=== PATIENT | female | born 1940 | race Caucasian/White ===

== ENCOUNTER 2021-01-26 23:21 | Emergency (ER) | payer MEDICARE, OTHER, SELFPAY ==
--- NOTE | ~2021-01-26 | CT_ITS ---
EXAMINATION: CT BRAIN WITHOUT CONTRAST AND CHEST X-RAY. CLINICAL INFORMATION: Acute agitation. Rule out stroke or bleed. Weakness. COMPARISON: None TECHNIQUE: 5 mm thin axial and reformatted 2 minutes in sagittal and coronal images of brain were obtained. DLP 620. Chest x-ray one view. FINDINGS: CHEST: The lungs are well-expanded with prominent bilateral hilar markings but no congestion or infiltrates seen. There is no pleural effusion. The heart size is borderline enlarged. There is mild spondylosis dorsal spine. BRAIN: There is no acute intra-axial, extra-axial bleed, masses or midline shift. Both lateral ventricles are symmetrical in size and configuration with mild enlargement. There is diffuse periventricular hypodensity in both cerebral hemispheres without mass effect. Bone windows reveal benign hyperostosis frontalis interna. No calvarial fracture. There is no scalp soft tissue abnormality. Bilateral paranasal sinuses and mastoid air cells are well aerated. CT/CT head/brain wo con IMPRESSION: Unremarkable chest x-ray. No acute intracranial process seen. Age-related mild cerebral volume loss with small vessel microangiopathy in both cerebral hemispheres.
[2021-01-26 23:41] VITALS: BP 152/58; PULSE 94; RESP 16; TEMP 36.7; O2SAT 98; BMI 28.1
[2021-01-27] VITALS (7 sets, daily range): BP systolic 128–180; BP diastolic 51–84; PULSE 84–90; RESP 16–18; TEMP 36.5–36.6; O2SAT 96–99
--- NOTE | 2021-01-27 02:54 | PC.NURSE ---
PT REMAINS CALM AND COOPERATIVE IN ED. PT CONVERSING WITH STAFF AND HOLDING ON TO TEODORO ACOSTA. PT DRINKING HASEEB BRIAN AND EATING CRACKERS. PT IS AWAITING FOR 'S ADIS. WILL CONTINUE TO MONITOR PT.
--- NOTE | 2021-01-27 05:53 | PC.NURSE ---
PT SLEEPING AND IN NAD AT THIS TIME. PT AWAITING FOR MD'S EVAL.
--- NOTE | 2021-01-27 06:06 | ECG_ITS ---
Test Reason : ANXIETY Blood Pressure : / mmHG Vent. Rate : 083 BPM Atrial Rate : 083 BPM P-R Int : 180 ms QRS Dur : 144 ms QT Int : 396 ms P-R-T Axes : 057 -51 001 degrees QTc Int : 465 ms Normal sinus rhythm Left axis deviation Right bundle branch block Abnormal ECG No previous ECGs available Referred By: Hebrert Montelongo Electronically Signed By:Benedict Kirby
[2021-01-27 07:01] LABS: MANUAL DIFF FLAG NO
[2021-01-27 07:03] LABS: Basophils Absolute Auto 0.1 X10*3/uL (0.0-0.2); Basophils Percent Auto 0.6 % (0-2); Eosinophils Absolute Auto 0.1 X10*3/uL (0.0-0.4); Eosinophils Percent Auto 1.8 % (0-4); Hematocrit 30.9 % (37-47); Hemoglobin 9.7 g/dl (12.0-16.0); Imm Gran Abs Auto 0.03 X10*3/uL (0.00-0.03); Imm Gran Pct Auto 0.4 % (0.0-0.4); Lymphocytes Absolute Auto 2.3 X10*3/uL (1.2-4.9); Lymphocytes Percent Auto 29.2 % (20-40); Mean Corpuscular HGB Conc 31.4 g/dl (31.0-35.0); Mean Corpuscular Hemoglobin 28.3 pg (27.0-33.0); Mean Corpuscular Volume 90.1 fL (80-98); Mean Platelet Volume 10.8 fL (9.4-12.3); Monocytes Absolute Auto 0.8 X10*3/uL (0.1-1.2); Neutrophils Absolute Auto 4.5 X10*3/uL (2.0-8.3); Platelet Count 187 X10*3/uL (160-400); Red Blood Count 3.43 X10*6/uL (4.20-5.50); White Blood Count 7.7 X10*3/uL (4.8-10.8)
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
--- NOTE | 2021-01-27 07:14 | PC.NURSE ---
spoke with bree from [facility] will fax over paperwork
--- NOTE | 2021-01-27 07:15 | PC.NURSE ---
Patient is resting quietly with eyes closed in no acute distress
[2021-01-27 07:17] LABS: COVID-19 Test Negative (Negative)
[2021-01-27 07:40] LABS: Lipase 31 U/L (8-78)
[2021-01-27 07:41] LABS: Ethanol < 10 mg/dL
[2021-01-27 07:42] LABS: Lactic Acid 0.7 mmol/L (0.5-2.0)
[2021-01-27 07:49] LABS: Alanine Aminotransferase 19 U/L (0-31); Albumin Level 3.1 g/dL (3.5-5.0); Alkaline Phosphatase 31 U/L (39-117); Anion Gap 10 (12-20); Aspartate Amino Transferase 24 U/L (5-31); Bilirubin Total 0.5 mg/dL (0.0-1.0); Blood Urea Nitrogen 11 mg/dL (9-16); Calcium 9.5 mg/dL (8.4-10.2); Carbon Dioxide 28 mmol/L (22-29); Chloride 107 mmol/L (96-108); Creatinine Clr Calc Pharmacy 64.5; Estimated Glomerular Filt Rate > 60; Glucose Random 89 mg/dL (60-115); Potassium 3.7 mmol/L (3.3-5.1); Sodium 141 mmol/L (135-145); Total Protein 5.3 g/dL (6.5-8.0)
[2021-01-27 07:51] LABS: Troponin-I High Sensitivity 22.3 ng/L (<3.5-17.0)
[2021-01-27 08:02] LABS: TSH reflex Free T4 0.65 uIU/mL (0.32-4.0)
--- NOTE | 2021-01-27 08:55 | PC.NURSE ---
Patient is asleep in bed in no distress. Respirations are even and nonlabored
[2021-01-27 09:51] LABS: COVID-19 Test Negative (Negative); Troponin-I High Sensitivity 21.6 ng/L (<3.5-17.0)
--- NOTE | 2021-01-27 11:23 | PC.NURSE ---
Patient resting quietly in bed in no distress. Pt has been sleeping most of the morning. Pt wakes up for vital signs. respirations are even and nonlabored
--- NOTE | 2021-01-27 11:30 | PC.NURSE ---
Patient awake and up to bedside commode then back to beds. pt is calm and cooperative. Pt denies any pain.
[2021-01-27 12:06] LABS: Glucose Urine UA NEG (NEG); Leukocyte Esterase Urine 1+ (NEG); Nitrite Urine NEG (NEG); Specific Gravity - Urine 1.015 (1.005-1.025); UACC Culture Trigger YES; Urine Blood NEG (NEG); Urine Ketones NEG (NEG); Urine Protein NEG (NEG-TRACE)
[2021-01-27 12:08] LABS: Appearance Urine HAZY; Color Urine YELLOW
[2021-01-27 12:24] LABS: Bacteria Urine TRACE /LPF; RBC Urine 0 /HPF (0); Squamous Epithelial Cell Urine 1+ /LPF
--- NOTE | 2021-01-27 13:30 | PC.NURSE ---
Patient sitting up in bed eating lunch in no distress
--- NOTE | 2021-01-27 13:31 | MHC.CM.ED ---
Received case management consult from CHANTELLE Bertrand. Patient was discharged from [facility] inpatient psych to [facility]. [facility] did not have patient's medication. She has a psych history and advanced dementia. Was brought to the ER under Section 12. Received telephone call from Robby at [facility]. If [facility] is unable to accept patient, they would be willing to accept patient back so she doesn't have to stay in the ER. Spoke with Amanda at [facility]. Ancticipate patient will be able to return Sunday, 01/28 with a morning transport. However, there are no managers in the building to confirm this. Spoke with patient's son, Raymond. He would prefer patient return to [facility]. Continue to monitor for d/c needs.
--- NOTE | 2021-01-27 14:16 | PC.NURSE ---
Patient remains calm and cooperative with staff. Pt is currently resting in bed with noted distress
--- NOTE | 2021-01-27 14:40 | PHA.MEDREC ---
Pharmacy Consult ? Medication Reconciliation Pharmacy has completed the medication reconciliation. Based on recent fill history patient should be on Amlodipine 5mg daily and Ferrous gluconate 324mg MoWeFr, however [facility] did not continue or have record of these medications so patient has not been taking them. Paroxetine 40mg daily was DC'd at [facility]. Melba Qureshi, PharmD
--- NOTE | 2021-01-27 16:00 | PC.NURSE ---
Pt is confused due to dementia and starting to show signs of sundown syndrome. Pt assisted to bedside commode then back to bed. Pt currently redirected with the tv and stuffed animal.
--- NOTE | 2021-01-27 16:56 | PC.NURSE ---
Patient is currently sitting in bed looking around in no distress.
--- NOTE | 2021-01-27 18:15 | PC.NURSE ---
patient given a dinner tray.
--- NOTE | 2021-01-27 18:54 | PC.NURSE ---
Patient trying to get out of the foot of the bed. Pt encouraged to slide back up in the bed. Pt offered a chance to go to the bathroom but declines.
--- NOTE | 2021-01-27 23:09 | PC.NURSE ---
several attempts to have pt change into hospital clothing and take 9pm antibiotic were unsuccessful. pt will not stay seated in recliner or bed, pacing. several attempts to redirect patient to stay seated or in bed. pt's med rec done, but still needs to be signed off by provider. pt has not had her medications in 2 days.
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
--- NOTE | 2021-01-28 04:16 | PC.NURSE ---
PT HAS WET PANTS FROM URINARY INCONTINENCE. ASKED PT TO CHANGE SO WE CAN WASH HER CLOTHING. [address] [employer] AND SEVERAL OTHER RN'S HAVE SPEND A LONG TIME ENCOURAGING PT TO CHANGE. RN BRIM [employer]ASER OPERATOR CONTACTED AND AWARE OF THE SITUATION. HER ADVICE WAS TO KEEP ENCOURAGING AND TRY IN THE MORNING.
--- NOTE | 2021-01-28 04:20 | PC.NURSE ---
PT AMBULATORY WITH STEADY GAIT, UP WALKING EVERY 30 MINUTES. PT THINKS SHE IS IN A RETAIL STORE. PT WILL NOT GO TO BATHROOM.
[2021-01-28 05:01] VITALS: RESP 16
--- NOTE | 2021-01-28 05:19 | PC.NURSE ---
PATIENT REFUSED TO HAVE VITALS TAKEN ,RN AWARE .
[2021-01-28] MEDS: Folic Acid 1 MG TABLET PO (07:43)
[2021-01-28] MEDS: Aspirin 81 MG TAB.CHEW PO (07:43)
--- NOTE | 2021-01-28 07:55 | PC.NURSE ---
pt sitting up in chair, she has put her breakfast on the floor and into the bed but did consume a small amount. Pt was able to take antibiotic this AM but then refused to take any other meds and put them on the floor. She has been yelling at staff about picking up the meds, seems angry. Pt has wet pants and is refusing to be changed. she has been up walking around the room looking for a telephone. Pt is very difficult to redirect at this time.
--- NOTE | 2021-01-28 09:38 | PC.NURSE ---
pt has been awake, agitated, refusing food, meds and care. She is ambulatory in hallway and asking staff to call her , then refusing to return to room. Pt redirected by multiple staff and now sitting in chair.
[2021-01-28] MEDS: LORazepam 2 MG/ML VIAL IM (09:58)
--- NOTE | 2021-01-28 10:11 | PC.NURSE ---
pt has become increasingly agitated and combative. She has walked from room into nursing station area, pushed bedside table into staff. She has been redirected to room by multiple different staff and continues to yell for her and is difficult to redirect. Pt has been medicated for agitation, is now in bed with tech at bedside until pt more calm. will continue to monitor
--- NOTE | 2021-01-28 10:41 | MHC.CM.ED ---
Patient remains in ER. [facility] is not able to accept patient due to pacing. [facility] liaison will reach out to patient's son Raymond. Spoke with Robby at [facility]. Since it's been over 24 hours since patient's discharge, they will need another Crisis eval. Once that is done, they will be able to accept patient as a failed discharge. Care Team consult ordered. Continue to monitor
[2021-01-28 11:25] VITALS: BP 110/47; PULSE 78; RESP 18; TEMP 36.3; O2SAT 98
[2021-01-28 12:14] VITALS: BP 115/55; PULSE 88; RESP 16; O2SAT 98
--- NOTE | 2021-01-28 12:52 | MHC.CARE ---
Plan for Pt to return to [facility] on the request of Pts son.
[2021-01-28 14:01] LABS: COVID-19 Test Negative (Negative); IDNOW Serial# 9DD0AD1C
[2021-01-28] MEDS: OLANZapine 5 MG TABLET PO (15:44)
== END 2021-01-28 15:47 ==
PROVIDERS: Emergency Medicine; Emergency Provider Emergency Medicine Emergency Medical Services; PCP Family Medicine
DX: G30.9 Alzheimer's disease, unspecified (principal); F02.80 Dementia in other diseases classified elsewhere, unspecified severity, without behavioral disturbance, psychotic disturbance, mood disturbance, and anxiety; N39.0 Urinary tract infection, site not specified; Z20.822 Contact with and (suspected) exposure to COVID-19
CPT/HCPCS: 36415; 51701; 70450; 71045; 80053; 81001; 81003; 82077; 83605; 83690; 84443; 84484; 85025; 87086; 87635; 93005; 96372; 99285; J2060